=== PATIENT | male | born 1945 | race Caucasian/White ===

== ENCOUNTER 2021-05-22 12:36 | Outpatient (CLI) | payer OTHER ==
[2021-05-22 13:20] LABS: #Eosinphils 0.1 10x3/uL (0.0-0.5); #Monocytes 0.6 10x3/uL (0.0-1.1); #Neutrophils 7.6 10x3/uL (1.5-8.4); %Basophils 0.4 % (0.0-2.0); %Eosinophils 0.7 % (0.0-6.0); %Lymphocytes 15.7 % (18.0-47.0); %Neutrophils 76.6 % (40.0-75.0); Hemoglobin 16.3 g/dL (13.5-17.5); Mean Corpuscular HGB CONC 34.6 g/dL (32.0-36.0); Mean Corpuscular Hemoglobin 31.3 pg (27.0-33.0); Mean Corpuscular Volume 90.4 fl (81.2-95.1); Mean Platelet Volume 9.7 fl (7.4-10.4); Platelet Count 199 10x3/uL (150-450); RBC Distribution Width 13.2 % (11.5-14.5); Red Blood Cell (RBC) Count 5.21 10x6/uL (4.32-5.72); White Blood Cell (WBC) Count 9.9 10x3/uL (3.5-10.5)
[2021-05-22 13:31] LABS: INR-International Normal Ratio 0.9; Prothrombin Time 10.3 sec (9.5-12.1)
[2021-05-22 13:40] LABS: Anion Gap 16 mmol/L (10-20); BUN (Urea Nitrogen) 7 mg/dL (8.4-25.7); Calc. Creatinine Clearance 0 mL/min (70-130); Calcium 9.4 mg/dL (7.8-10.44); Carbon Dioxide 23 mmol/L (23-31); Chloride 102 mmol/L (98-107); Glucose 95 mg/dL (83-110); Potassium 4.2 mmol/L (3.5-5.1); Sodium 137 mmol/L (136-145)
[2021-05-23 00:11] LABS: SARS-CoV-2 PCR by NAA Not Detected (NotDetected)
== END 2021-05-22 12:37 | disposition home or self-care (01) ==
LOC: LABBT 12:36
PROVIDERS: ATTEND Orthopaedic Surgery
DX: Z01.818 Encounter for other preprocedural examination (principal); M17.32 Unilateral post-traumatic osteoarthritis, left knee; Z20.822 Contact with and (suspected) exposure to COVID-19
CPT/HCPCS: 80048; 85025; 85610; 87081; 93005; 93010; U0003; U0005

== ENCOUNTER 2021-05-22 12:45 | Inpatient (IN) | payer OTHER ==
[2021-05-20 13:33] VITALS: BMI 33.2
[2021-05-27] MEDS ORDERED: Tranexamic Acid 1,000 MG/10 ML VIAL ONE (05:54)
[2021-05-27] MEDS ORDERED: Sodium Chloride 0.9% 100 ML ONE (05:54)
[2021-05-27] MEDS ORDERED: Vancomycin 1.5 GRAM/300 ML BAG 1.5 GM in Premix Bag 1 BAG IVPB SCH (06:00)
[2021-05-27] MEDS ORDERED: Fentanyl 100 MCG/2 ML VIAL ONE ×2 (06:13→06:44)
[2021-05-27] MEDS ORDERED: Lidocaine 1% (PF) 30 ML VIAL ONE (06:44)
[2021-05-27] MEDS ORDERED: Midazolam HCl 2 mg/2 ml Vial ONE (06:44)
[2021-05-27] MEDS ORDERED: Ropivacaine 0.5% HCl/PF (150 MG/30 ML VIAL) ONE (06:44)
[2021-05-27] MEDS ORDERED: Bupivacaine 0.25% 10 ML VIAL ONE (06:59)
[2021-05-27] MEDS ORDERED: Clindamycin/D5W 900 mg/50 ml Premix Bag ONE (07:06)
[2021-05-27] MEDS ORDERED: Levofloxacin 500 mg/D5W 100 ml Premix Bag ONE (07:06)
[2021-05-27] MEDS ORDERED: Dexamethasone 20 MG/5 ML VIAL ONE (07:13)
[2021-05-27] MEDS ORDERED: Ondansetron PF 4 MG/2 ML Vial ONE (07:13)
[2021-05-27] MEDS ORDERED: PROPOFOL 200 MG/20 ML VIAL ONE (07:13)
[2021-05-27] MEDS ORDERED: Lidocaine 1% PF 5 ML VIAL ONE (07:13)
[2021-05-27] MEDS ORDERED: EPINEPHrine 1 MG/ML AMP ONE (08:15)
[2021-05-27] MEDS ORDERED: Fentanyl 250 MCG/5 ML VIAL ONE ×2 (08:43→09:37)
[2021-05-27] MEDS ORDERED: Fentanyl 100 MCG/2 ML VIAL SLOW IVP PRN (08:47)
[2021-05-27] MEDS ORDERED: Promethazine HCl 25 MG/ML VIAL IM PRN ×3 (09:00→09:34)
[2021-05-27] MEDS ORDERED: Ropivacaine 0.2% 550 ML 550 ML NERVE BLCK SCH (09:00)
[2021-05-27] MEDS ORDERED: Ondansetron PF 4 MG/2 ML Vial IVP PRN ×2 (09:00→09:34)
[2021-05-27] MEDS ORDERED: Zolpidem Tartrate 5 MG TAB PO PRN ×2 (09:00→09:34)
[2021-05-27] MEDS ORDERED: traMADol HCl 50 MG TAB PO PRN ×2 (09:00)
[2021-05-27] MEDS ORDERED: Ketorolac Tromethamine 30 MG/ML VIAL IVP PRN (09:28)
[2021-05-27] MEDS ORDERED: Ondansetron HCl/PF 4 MG/2 ML Vial IVP PRN (09:28)
[2021-05-27] MEDS ORDERED: Promethazine HCl 25 MG/ML VIAL IVPB PRN (09:28)
[2021-05-27] MEDS ORDERED: diphenhydrAMINE 25 MG CAP PO PRN (09:34)
[2021-05-27] MEDS ORDERED: Ketorolac Tromethamine 30 MG/ML VIAL ONE (09:37)
[2021-05-27] MEDS: Ketorolac Tromethamine 30 MG/ML VIAL IVP SCH ×2 (12:03→18:11)
[2021-05-27] MEDS: HYDROcodone/Acetaminophen 10/325 mg Tablet PO PRN ×2 (12:05→18:13)
[2021-05-27] MEDS: Clindamycin/D5W 900 MG in Premix Bag 1 BAG IVPB SCH ×2 (14:14→18:48)
[2021-05-27] MEDS ORDERED: Vancomycin HCl 1.5 GM in Sodium Chloride 0.9% 250 ML 300 ML IVPB SCH (19:00)
[2021-05-27] MEDS: Aspirin 81 mg Enteric Coated Tablet PO SCH (21:25)
[2021-05-27] MEDS: Ferrous Gluconate 324 MG TAB PO SCH (21:25)
[2021-05-27] MEDS: Senokot S 8.6-50 MG TAB PO SCH (21:25)
[2021-05-28] MEDS: Ketorolac Tromethamine 30 MG/ML VIAL IVP SCH ×4 (00:45→17:27)
[2021-05-28 05:18] LABS: Hemoglobin 11.9 g/dL (14.0-18.0); Mean Corpuscular HGB CONC 33.6 g/dL (32.0-36.0); Mean Corpuscular Hemoglobin 32.7 pg (27.0-31.0); Mean Corpuscular Volume 97.4 fL (78.0-98.0); Mean Platelet Volume 7.5 fL (7.4-10.4); Platelet Count 153 thou/uL (130-400); RBC Distribution Width 11.8 % (11.5-14.5); Red Blood Cell (RBC) Count 3.63 mill/uL (4.70-6.10); White Blood Cell (WBC) Count 11.4 thou/uL (4.8-10.8)
[2021-05-28] MEDS: Aspirin 81 mg Enteric Coated Tablet PO SCH ×2 (08:39→19:58)
[2021-05-28] MEDS: Ferrous Gluconate 324 MG TAB PO SCH ×2 (08:39→19:59)
[2021-05-28] MEDS: Multivitamin W/ Minerals 1 TAB PO SCH (08:39)
[2021-05-28] MEDS: Senokot S 8.6-50 MG TAB PO SCH ×2 (08:39→19:58)
[2021-05-28] MEDS: HYDROcodone/Acetaminophen 10/325 mg Tablet PO PRN ×2 (08:40→13:54)
[2021-05-28] MEDS ORDERED: Polyethylene Glycol 3350 17 GM Packet PO PRN (08:53)
[2021-05-28] MEDS: Tamsulosin HCl 0.4 MG CAP PO SCH (19:58)
[2021-05-28] MEDS: Melatonin 3 MG TAB PO PRN (19:59)
[2021-05-28] MEDS: Mirtazapine 30 MG TAB PO SCH (20:02)
[2021-05-29] MEDS: Ketorolac Tromethamine 30 MG/ML VIAL IVP SCH ×2 (00:10→05:20)
[2021-05-29 05:35] LABS: Hemoglobin 10.9 g/dL (14.0-18.0); Mean Corpuscular HGB CONC 34.2 g/dL (32.0-36.0); Mean Corpuscular Hemoglobin 33.1 pg (27.0-31.0); Mean Corpuscular Volume 96.8 fL (78.0-98.0); Mean Platelet Volume 7.7 fL (7.4-10.4); Platelet Count 157 thou/uL (130-400); White Blood Cell (WBC) Count 9.4 thou/uL (4.8-10.8)
[2021-05-29 06:01] LABS: ALT (SGPT) 13 U/L (8-55); AST (SGOT) 15 U/L (5-34); Albumin 3.3 g/dL (3.4-4.8); Alkaline Phosphatase 66 U/L (40-110); Bilirubin, Direct 0.4 mg/dL (0.1-0.3); Bilirubin, Total 0.6 mg/dL (0.2-1.2); Protein, Total 5.6 g/dL (5.8-8.1)
[2021-05-29 06:02] LABS: Anion Gap 12 mmol/L (10-20); BUN (Urea Nitrogen) 10 mg/dL (8.4-25.7); Calc. Creatinine Clearance 134 mL/min (70-130); Calcium 8.1 mg/dL (7.8-10.44); Carbon Dioxide 22 mmol/L (23-31); Chloride 104 mmol/L (98-107); Glucose 139 mg/dL (83-110); Magnesium 1.9 mg/dL (1.6-2.6); Potassium 3.6 mmol/L (3.5-5.1); Sodium 134 mmol/L (136-145)
[2021-05-29 06:24] LABS: Thyroid Stimulating Hormone 0.9928 uIU/mL (0.35-4.94)
[2021-05-29] MEDS ORDERED: Non-Formulary Item 1 EACH (Ascorbic Acid [Vitamin C] 1,000 MG Tablet) PO SCH (09:00)
[2021-05-29] MEDS ORDERED: VITAMIN E 1000 UNIT PO SCH (09:00)
[2021-05-29] MEDS ORDERED: Non-Formulary Item 1 EACH (Cholecalciferol (Vitamin D3) [Vitamin D3] 1,000 UNIT Capsule) PO SCH (09:00)
[2021-05-29] MEDS ORDERED: Multivit, Therapeutic 1 TAB PO SCH (09:00)
[2021-05-29] MEDS: Ascorbic Acid 500 mg Chewable Tablet PO SCH (09:42)
[2021-05-29] MEDS: Multivitamin W/ Minerals 1 TAB PO SCH (09:43)
[2021-05-29] MEDS: Aspirin 81 mg Enteric Coated Tablet PO SCH ×2 (09:43→20:22)
[2021-05-29] MEDS: Cyanocobalamin (Vitamin B-12) 1,000 MCG TAB PO SCH (09:43)
[2021-05-29] MEDS: Folic Acid 1 MG TAB PO SCH (09:43)
[2021-05-29] MEDS: Ferrous Gluconate 324 MG TAB PO SCH ×2 (09:44→20:21)
[2021-05-29] MEDS: HYDROcodone/Acetaminophen 10/325 mg Tablet PO PRN ×2 (09:44→20:23)
[2021-05-29] MEDS: Cholecalciferol 1,000 UNITS (25 MCG) TAB PO SCH (09:47)
[2021-05-29] MEDS: Senokot S 8.6-50 MG TAB PO SCH ×2 (09:47→20:22)
[2021-05-29] MEDS: Melatonin 3 MG TAB PO PRN (20:22)
[2021-05-29] MEDS: Mirtazapine 30 MG TAB PO SCH (20:22)
[2021-05-29] MEDS: Tamsulosin HCl 0.4 MG CAP PO SCH (20:24)
[2021-05-30 05:17] LABS: Hemoglobin 10.5 g/dL (14.0-18.0); Mean Corpuscular HGB CONC 32.3 g/dL (32.0-36.0); Mean Corpuscular Hemoglobin 31.6 pg (27.0-31.0); Mean Platelet Volume 7.8 fL (7.4-10.4); Platelet Count 150 thou/uL (130-400); RBC Distribution Width 11.9 % (11.5-14.5); White Blood Cell (WBC) Count 8.6 thou/uL (4.8-10.8)
[2021-05-30 05:36] LABS: Anion Gap 10 mmol/L (10-20); BUN (Urea Nitrogen) 8 mg/dL (8.4-25.7); Calc. Creatinine Clearance 156 mL/min (70-130); Calcium 8.3 mg/dL (7.8-10.44); Carbon Dioxide 23 mmol/L (23-31); Chloride 108 mmol/L (98-107); Glucose 108 mg/dL (83-110); Magnesium 2.2 mg/dL (1.6-2.6); Potassium 3.5 mmol/L (3.5-5.1); Sodium 137 mmol/L (136-145)
[2021-05-30] MEDS: HYDROcodone/Acetaminophen 10/325 mg Tablet PO PRN ×3 (08:25→20:13)
[2021-05-30] MEDS: Senokot S 8.6-50 MG TAB PO SCH ×2 (08:26→20:10)
[2021-05-30] MEDS: Cyanocobalamin (Vitamin B-12) 1,000 MCG TAB PO SCH (08:26)
[2021-05-30] MEDS: Ascorbic Acid 500 mg Chewable Tablet PO SCH (08:26)
[2021-05-30] MEDS: Cholecalciferol 1,000 UNITS (25 MCG) TAB PO SCH (08:26)
[2021-05-30] MEDS: Folic Acid 1 MG TAB PO SCH (08:26)
[2021-05-30] MEDS: Multivitamin W/ Minerals 1 TAB PO SCH (08:26)
[2021-05-30] MEDS: Ferrous Gluconate 324 MG TAB PO SCH ×2 (08:27→20:11)
[2021-05-30] MEDS: Aspirin 81 mg Enteric Coated Tablet PO SCH ×2 (08:27→20:10)
[2021-05-30] MEDS: Tamsulosin HCl 0.4 MG CAP PO SCH (20:10)
[2021-05-30] MEDS: Mirtazapine 30 MG TAB PO SCH (20:10)
[2021-05-30] MEDS: Melatonin 3 MG TAB PO PRN (20:13)
[2021-05-31 05:59] LABS: Hemoglobin 10.4 g/dL (14.0-18.0); Mean Corpuscular HGB CONC 33.9 g/dL (32.0-36.0); Mean Corpuscular Volume 97.3 fL (78.0-98.0); Mean Platelet Volume 7.8 fL (7.4-10.4); Platelet Count 171 thou/uL (130-400); RBC Distribution Width 11.7 % (11.5-14.5); Red Blood Cell (RBC) Count 3.15 mill/uL (4.70-6.10); White Blood Cell (WBC) Count 8.8 thou/uL (4.8-10.8)
[2021-05-31 06:29] LABS: Anion Gap 10 mmol/L (10-20); BUN (Urea Nitrogen) 8 mg/dL (8.4-25.7); Calc. Creatinine Clearance 164 mL/min (70-130); Calcium 8.6 mg/dL (7.8-10.44); Carbon Dioxide 25 mmol/L (23-31); Chloride 105 mmol/L (98-107); Glucose 104 mg/dL (83-110); Magnesium 2.1 mg/dL (1.6-2.6); Potassium 3.8 mmol/L (3.5-5.1); Sodium 136 mmol/L (136-145)
[2021-05-31] MEDS: HYDROcodone/Acetaminophen 10/325 mg Tablet PO PRN ×3 (07:56→20:10)
[2021-05-31] MEDS: Ferrous Gluconate 324 MG TAB PO SCH ×2 (08:00→20:10)
[2021-05-31] MEDS: Folic Acid 1 MG TAB PO SCH (08:00)
[2021-05-31] MEDS: Aspirin 81 mg Enteric Coated Tablet PO SCH ×2 (08:00→20:09)
[2021-05-31] MEDS: Cholecalciferol 1,000 UNITS (25 MCG) TAB PO SCH (08:01)
[2021-05-31] MEDS: Ascorbic Acid 500 mg Chewable Tablet PO SCH (08:01)
[2021-05-31] MEDS: Senokot S 8.6-50 MG TAB PO SCH ×2 (08:02→20:09)
[2021-05-31] MEDS: Cyanocobalamin (Vitamin B-12) 1,000 MCG TAB PO SCH (08:02)
[2021-05-31] MEDS: Multivitamin W/ Minerals 1 TAB PO SCH (08:03)
[2021-05-31] MEDS: Thiamine 100 MG TAB PO SCH (10:54)
[2021-05-31] MEDS: Melatonin 3 MG TAB PO PRN (20:09)
[2021-05-31] MEDS: Tamsulosin HCl 0.4 MG CAP PO SCH (20:10)
[2021-05-31] MEDS: Mirtazapine 30 MG TAB PO SCH (20:10)
[2021-06-01 06:17] LABS: Hemoglobin 10.9 g/dL (14.0-18.0); Mean Corpuscular HGB CONC 34.5 g/dL (32.0-36.0); Mean Corpuscular Hemoglobin 33.7 pg (27.0-31.0); Mean Corpuscular Volume 97.7 fL (78.0-98.0); Mean Platelet Volume 7.7 fL (7.4-10.4); Platelet Count 182 thou/uL (130-400); RBC Distribution Width 11.7 % (11.5-14.5); Red Blood Cell (RBC) Count 3.24 mill/uL (4.70-6.10); White Blood Cell (WBC) Count 8.2 thou/uL (4.8-10.8)
[2021-06-01 06:44] LABS: Anion Gap 11 mmol/L (10-20); BUN (Urea Nitrogen) 8 mg/dL (8.4-25.7); Calc. Creatinine Clearance 158 mL/min (70-130); Calcium 8.6 mg/dL (7.8-10.44); Carbon Dioxide 24 mmol/L (23-31); Chloride 105 mmol/L (98-107); Glucose 116 mg/dL (83-110); Magnesium 2.1 mg/dL (1.6-2.6); Potassium 3.8 mmol/L (3.5-5.1); Sodium 136 mmol/L (136-145)
[2021-06-01] MEDS: HYDROcodone/Acetaminophen 10/325 mg Tablet PO PRN ×3 (07:11→20:11)
[2021-06-01] MEDS: Cyanocobalamin (Vitamin B-12) 1,000 MCG TAB PO SCH (09:53)
[2021-06-01] MEDS: Folic Acid 1 MG TAB PO SCH (09:53)
[2021-06-01] MEDS: Aspirin 81 mg Enteric Coated Tablet PO SCH ×2 (09:53→20:08)
[2021-06-01] MEDS: Multivitamin W/ Minerals 1 TAB PO SCH (09:53)
[2021-06-01] MEDS: Ascorbic Acid 500 mg Chewable Tablet PO SCH (09:53)
[2021-06-01] MEDS: Cholecalciferol 1,000 UNITS (25 MCG) TAB PO SCH (09:53)
[2021-06-01] MEDS: Ferrous Gluconate 324 MG TAB PO SCH ×2 (09:53→20:09)
[2021-06-01] MEDS: Senokot S 8.6-50 MG TAB PO SCH ×2 (10:00→20:10)
[2021-06-01] MEDS: Thiamine 100 MG TAB PO SCH (10:01)
[2021-06-01] MEDS: Mirtazapine 30 MG TAB PO SCH (20:09)
[2021-06-01] MEDS: Melatonin 3 MG TAB PO PRN (20:10)
[2021-06-01] MEDS: Tamsulosin HCl 0.4 MG CAP PO SCH (20:10)
[2021-06-02] MEDS: HYDROcodone/Acetaminophen 10/325 mg Tablet PO PRN ×3 (05:09→21:19)
[2021-06-02 05:42] LABS: Hemoglobin 10.6 g/dL (14.0-18.0); Mean Corpuscular HGB CONC 33.9 g/dL (32.0-36.0); Mean Corpuscular Hemoglobin 32.8 pg (27.0-31.0); Mean Corpuscular Volume 96.9 fL (78.0-98.0); Mean Platelet Volume 7.4 fL (7.4-10.4); Platelet Count 217 thou/uL (130-400); RBC Distribution Width 11.8 % (11.5-14.5); Red Blood Cell (RBC) Count 3.24 mill/uL (4.70-6.10); White Blood Cell (WBC) Count 8.1 thou/uL (4.8-10.8)
[2021-06-02 06:04] LABS: Anion Gap 13 mmol/L (10-20); BUN (Urea Nitrogen) 10 mg/dL (8.4-25.7); Calc. Creatinine Clearance 144 mL/min (70-130); Calcium 8.7 mg/dL (7.8-10.44); Carbon Dioxide 24 mmol/L (23-31); Chloride 103 mmol/L (98-107); Glucose 120 mg/dL (83-110); Magnesium 2.2 mg/dL (1.6-2.6); Potassium 3.9 mmol/L (3.5-5.1); Sodium 136 mmol/L (136-145)
[2021-06-02] MEDS: Aspirin 81 mg Enteric Coated Tablet PO SCH ×2 (07:59→21:19)
[2021-06-02] MEDS: Senokot S 8.6-50 MG TAB PO SCH ×2 (07:59→22:37)
[2021-06-02] MEDS: Thiamine 100 MG TAB PO SCH (07:59)
[2021-06-02] MEDS: Folic Acid 1 MG TAB PO SCH (07:59)
[2021-06-02] MEDS: Cyanocobalamin (Vitamin B-12) 1,000 MCG TAB PO SCH (07:59)
[2021-06-02] MEDS: Ascorbic Acid 500 mg Chewable Tablet PO SCH (07:59)
[2021-06-02] MEDS: Cholecalciferol 1,000 UNITS (25 MCG) TAB PO SCH (07:59)
[2021-06-02] MEDS: Multivitamin W/ Minerals 1 TAB PO SCH (08:00)
[2021-06-02] MEDS: Ferrous Gluconate 324 MG TAB PO SCH ×2 (08:00→21:19)
[2021-06-02] MEDS ORDERED: Acetaminophen 325 MG TAB PO PRN (14:28)
[2021-06-02] MEDS ORDERED: Milk Of Magnesia 30 ML UDCUP PO PRN (15:09)
[2021-06-02] MEDS ORDERED: Polyethylene Glycol 3350 17 GM Packet PO SCH (15:15)
[2021-06-02] MEDS: Mirtazapine 30 MG TAB PO SCH (21:19)
[2021-06-02] MEDS: Melatonin 3 MG TAB PO PRN (21:19)
[2021-06-02] MEDS: Tamsulosin HCl 0.4 MG CAP PO SCH (21:19)
[2021-06-03 06:25] LABS: Hemoglobin 9.8 g/dL (14.0-18.0); Mean Corpuscular HGB CONC 33.2 g/dL (32.0-36.0); Mean Corpuscular Hemoglobin 32.1 pg (27.0-31.0); Mean Corpuscular Volume 96.5 fL (78.0-98.0); Platelet Count 207 thou/uL (130-400); RBC Distribution Width 11.7 % (11.5-14.5); Red Blood Cell (RBC) Count 3.07 mill/uL (4.70-6.10); White Blood Cell (WBC) Count 8.9 thou/uL (4.8-10.8)
[2021-06-03] MEDS: HYDROcodone/Acetaminophen 10/325 mg Tablet PO PRN ×3 (06:46→21:11)
[2021-06-03 06:50] LABS: Anion Gap 13 mmol/L (10-20); BUN (Urea Nitrogen) 10 mg/dL (8.4-25.7); Calc. Creatinine Clearance 153 mL/min (70-130); Calcium 8.6 mg/dL (7.8-10.44); Carbon Dioxide 24 mmol/L (23-31); Chloride 102 mmol/L (98-107); Glucose 136 mg/dL (83-110); Magnesium 2.2 mg/dL (1.6-2.6); Potassium 3.8 mmol/L (3.5-5.1); Sodium 135 mmol/L (136-145)
[2021-06-03] MEDS: Polyethylene Glycol 3350 17 GM Packet PO SCH (09:41)
[2021-06-03] MEDS: Aspirin 81 mg Enteric Coated Tablet PO SCH ×2 (09:41→21:11)
[2021-06-03] MEDS: Ascorbic Acid 500 mg Chewable Tablet PO SCH (09:41)
[2021-06-03] MEDS: Ferrous Gluconate 324 MG TAB PO SCH ×2 (09:42→21:12)
[2021-06-03] MEDS: Multivitamin W/ Minerals 1 TAB PO SCH (09:42)
[2021-06-03] MEDS: Folic Acid 1 MG TAB PO SCH (09:42)
[2021-06-03] MEDS: Cyanocobalamin (Vitamin B-12) 1,000 MCG TAB PO SCH (09:42)
[2021-06-03] MEDS: Cholecalciferol 1,000 UNITS (25 MCG) TAB PO SCH (09:42)
[2021-06-03] MEDS: Thiamine 100 MG TAB PO SCH (09:47)
[2021-06-03] MEDS: Senokot S 8.6-50 MG TAB PO SCH ×2 (10:16→21:14)
[2021-06-03] MEDS ORDERED: Nicotine 21 MG PATCH TD SCH (18:15)
[2021-06-03] MEDS: Melatonin 3 MG TAB PO PRN (21:11)
[2021-06-03] MEDS: Tamsulosin HCl 0.4 MG CAP PO SCH (21:12)
[2021-06-03] MEDS: Mirtazapine 30 MG TAB PO SCH (21:12)
[2021-06-04 07:28] LABS: Anion Gap 14 mmol/L (10-20); BUN (Urea Nitrogen) 11 mg/dL (8.4-25.7); Calc. Creatinine Clearance 138 mL/min (70-130); Carbon Dioxide 25 mmol/L (23-31); Chloride 102 mmol/L (98-107); Glucose 111 mg/dL (83-110); Magnesium 2.3 mg/dL (1.6-2.6); Potassium 3.9 mmol/L (3.5-5.1); Sodium 137 mmol/L (136-145)
[2021-06-04 08:41] VITALS: BP 136/84; TEMP 98.9
[2021-06-04] MEDS: Multivitamin W/ Minerals 1 TAB PO SCH (09:23)
[2021-06-04] MEDS: Aspirin 81 mg Enteric Coated Tablet PO SCH (09:23)
[2021-06-04] MEDS: Ferrous Gluconate 324 MG TAB PO SCH (09:23)
[2021-06-04] MEDS: Cyanocobalamin (Vitamin B-12) 1,000 MCG TAB PO SCH (09:23)
[2021-06-04] MEDS: Thiamine 100 MG TAB PO SCH (09:23)
[2021-06-04] MEDS: Ascorbic Acid 500 mg Chewable Tablet PO SCH (09:23)
[2021-06-04] MEDS: Polyethylene Glycol 3350 17 GM Packet PO SCH (09:24)
[2021-06-04] MEDS: Folic Acid 1 MG TAB PO SCH (09:24)
[2021-06-04] MEDS: Cholecalciferol 1,000 UNITS (25 MCG) TAB PO SCH (09:24)
[2021-06-04] MEDS: Senokot S 8.6-50 MG TAB PO SCH (09:24)
[2021-06-04] MEDS: HYDROcodone/Acetaminophen 10/325 mg Tablet PO PRN (09:34)
[2021-06-04] MEDS ORDERED: Nicotine 21 MG PATCH TD SCH (18:00)
== END 2021-06-04 11:10 | disposition home health service (06) | DRG 470 ==
LOC: SURG A 05-27 05:21 → INTOOBSV 05-27 05:21 → SJJU 05-27 11:06 → OBSVTOIN 05-28 07:08
PROVIDERS: ADMIT Orthopaedic Surgery; ATTEND Hospitalist
PROC: 0SRD0J9 Replacement of Left Knee Joint with Synthetic Substitute, Cemented, Open Approach (ICD-10-PCS; principal; 2021-05-27)
DX: M17.32 Unilateral post-traumatic osteoarthritis, left knee (principal); N40.0 Benign prostatic hyperplasia without lower urinary tract symptoms; F41.9 Anxiety disorder, unspecified; F17.200 Nicotine dependence, unspecified, uncomplicated; G47.00 Insomnia, unspecified; F10.11 Alcohol abuse, in remission; H40.9 Unspecified glaucoma; K59.00 Constipation, unspecified; D50.9 Iron deficiency anemia, unspecified; Z60.2 Problems related to living alone; Z88.0 Allergy status to penicillin; Z83.3 Family history of diabetes mellitus; Z82.49 Family history of ischemic heart disease and other diseases of the circulatory system; Z79.82 Long term (current) use of aspirin; Z79.899 Other long term (current) drug therapy; Z98.84 Bariatric surgery status
CPT/HCPCS: 36415; 80048; 80076; 82607; 82746; 83735; 84443; 85027; 96365; 96366; 96375; 96376; A4306; C1713; C1776; G0378; J0171; J1100; J1885; J1956; J2001; J2250; J2405; J2704; J2795; J3010; J3370; J3490; J7050; S0020

== ENCOUNTER 2021-06-08 17:27 | Emergency (ER) | payer OTHER | END 2021-06-08 18:52 | disposition home or self-care (01) | LOC: ERS 17:27 | DX: M79.89 Other specified soft tissue disorders (principal); R91.1 Solitary pulmonary nodule; F17.210 Nicotine dependence, cigarettes, uncomplicated ==

== ENCOUNTER 2022-08-07 15:30 | Inpatient (IN) | payer MEDICARE, OTHER ==
[~2022-08-07 15:30] MED LIST: Iopamidol-370 76% 500 ML MDV (1 ML CHARGE) ONE
[2022-08-07 15:46] LABS: #Monocytes 1.3 thou/uL (0.11-0.59); #Neutrophils 20.2 thou/uL (1.40-6.50); %Basophils 0.2 % (0.0-1.0); %Eosinophils 0.1 % (0.0-10.0); %Monocytes 5.7 % (0.0-10.0); %Neutrophils 88.7 % (42.0-75.0); Hemoglobin 14.3 g/dL (14.0-18.0); Mean Corpuscular HGB CONC 34.7 g/dL (32.0-36.0); Mean Corpuscular Hemoglobin 31.7 pg (27.0-31.0); Mean Corpuscular Volume 91.4 fl (78.0-98.0); Mean Platelet Volume 9.4 fL (7.4-10.4); Platelet Count 150 10x3/uL (130-400); RBC Distribution Width 13.2 % (11.5-14.5); Red Blood Cell (RBC) Count 4.51 mill/uL (4.70-6.10); White Blood Cell (WBC) Count 22.7 10x3/uL (4.8-10.8)
[2022-08-07 16:07] LABS: ALT (SGPT) 18 U/L (8-55); AST (SGOT) 23 U/L (5-34); Albumin 3.6 g/dL (3.4-4.8); Alkaline Phosphatase 102 U/L (40-110); Anion Gap 15 mmol/L (10-20); BUN (Urea Nitrogen) 8 mg/dL (8.4-25.7); Bilirubin, Total 1.3 mg/dL (0.2-1.2); Calc. Creatinine Clearance 0 mL/min (70-130); Calcium 8.8 mg/dL (7.8-10.44); Carbon Dioxide 20 mmol/L (23-31); Chloride 97 mmol/L (98-107); Estimated GFR 94; Glucose 142 mg/dL (83-110); Potassium 3.9 mmol/L (3.5-5.1); Protein, Total 6.6 g/dL (5.8-8.1); Sodium 128 mmol/L (136-145)
[2022-08-07 16:17] LABS: Bacteria/HPF 1+ HPF (None Seen); Bilirubin Negative (Negative); Blood, Urine 3+ (Negative); CAUTI Indications for Culture Acute Hematuria; Clarity Turbid (Clear); Glucose, Urine (Dipstick) Normal (Negative); Ketone, Urine Negative (Negative); Leukocyte 500 Leu/uL (Negative); Nitrite Negative (Negative); Protein, Urine (Dipstick) 200 mg/dL (Neg-Trace); RBC/HPF Greater than 50 HPF (0-3); Specific Gravity, Urine 1.018 (1.002-1.036); Squamous Epithelial 0-3 HPF (0-3); Urobilinogen 3 mg/dL (Less than 2); WBC/HPF Greater than 50 HPF (0-3)
[2022-08-07 16:18] LABS: Urine Culture Reflex Yes Yes
[2022-08-07] MEDS ORDERED: cefTRIAXone (ROCEPHIN) 2 GM VIAL ONE (16:33)
[2022-08-07] MEDS ORDERED: Vancomycin 1.5 GRAM/300 ML BAG 1.5 GM in Premix Bag 1 BAG IVPB SCH (16:45)
[2022-08-07] MEDS ORDERED: Ondansetron ODT 4 MG TAB PO PRN (17:13)
[2022-08-07] MEDS ORDERED: Electrolyte Replacement Protocol FS SCH (17:15)
[2022-08-07 17:51] LABS: Magnesium 1.9 mg/dL (1.6-2.6); Phosphorus 2.7 mg/dL (2.3-4.7)
[2022-08-07 19:08] VITALS: BMI 36.6
[2022-08-07] MEDS: Lactated Ringer's 1,000 ML IV SCH (20:39)
[2022-08-07] MEDS: Lorazepam 1 MG TAB PO SCH ×2 (20:39→22:18)
[2022-08-07] MEDS: Acetaminophen 325 MG TAB PO PRN (20:40)
[2022-08-07] MEDS: Thiamine HCl 200 MG/2 ML VIAL SLOW IVP SCH (20:40)
[2022-08-07] MEDS: Mirtazapine 30 MG TAB PO SCH (20:40)
[2022-08-07] MEDS: Tamsulosin HCl 0.4 MG CAP PO SCH (20:41)
[2022-08-07] MEDS ORDERED: Magnesium 2 GM/50 ML(in water) 2 GM in Premix Bag 1 BAG IVPB SCH (22:00)
[2022-08-08] MEDS: Lorazepam 0.5 MG TAB PO SCH ×4 (06:15→23:11)
[2022-08-08] MEDS: Lactated Ringer's 1,000 ML IV SCH ×3 (06:15→23:12)
[2022-08-08] MEDS: Lorazepam 1 MG TAB PO SCH (06:18)
[2022-08-08 06:33] LABS: #Neutrophils 15.9 thou/uL (1.40-6.50); %Basophils 0.2 % (0.0-1.0); %Eosinophils 0.1 % (0.0-10.0); %Lymphocytes 3.3 % (21.0-51.0); %Monocytes 5.7 % (0.0-10.0); %Neutrophils 88.6 % (42.0-75.0); Hemoglobin 14.1 g/dL (14.0-18.0); Mean Corpuscular HGB CONC 33.9 g/dL (32.0-36.0); Mean Corpuscular Hemoglobin 31.5 pg (27.0-31.0); Mean Corpuscular Volume 92.9 fl (78.0-98.0); Mean Platelet Volume 10.2 fL (7.4-10.4); Platelet Count 150 10x3/uL (130-400); RBC Distribution Width 13.3 % (11.5-14.5); Red Blood Cell (RBC) Count 4.48 mill/uL (4.70-6.10); White Blood Cell (WBC) Count 17.9 10x3/uL (4.8-10.8)
[2022-08-08] MEDS: Folic Acid 1 MG TAB PO SCH (09:51)
[2022-08-08] MEDS: Nicotine 21 MG PATCH TD SCH (09:51)
[2022-08-08] MEDS: Multivit, Therapeutic 1 TAB PO SCH (09:51)
[2022-08-08] MEDS: Acetaminophen 325 MG TAB PO PRN ×2 (09:53→20:18)
[2022-08-08 10:30] LABS: ALT (SGPT) 17 U/L (8-55); AST (SGOT) 18 U/L (5-34); Albumin 3.4 g/dL (3.4-4.8); Alkaline Phosphatase 118 U/L (40-110); Anion Gap 18 mmol/L (10-20); BUN (Urea Nitrogen) 12 mg/dL (8.4-25.7); Bilirubin, Total 0.7 mg/dL (0.2-1.2); Calc. Creatinine Clearance 98 mL/min (70-130); Carbon Dioxide 21 mmol/L (23-31); Chloride 100 mmol/L (98-107); Estimated GFR 77; Globulin 3.2 g/dL (2.4-3.5); Glucose 109 mg/dL (83-110); Potassium 3.6 mmol/L (3.5-5.1); Protein, Total 6.6 g/dL (5.8-8.1); Sodium 135 mmol/L (136-145)
[2022-08-08] MEDS: Thiamine HCl 200 MG/2 ML VIAL SLOW IVP SCH (17:55)
[2022-08-08] MEDS: cefTRIAXone\\ROCEPHIN 2 GM in Sodium Chloride 0.9% 100 ML IVPB SCH (17:58)
[2022-08-08] MEDS ORDERED: Lorazepam 2 MG/ML VIAL IM PRN (18:03)
[2022-08-08] MEDS: Ipratropium/Albuterol 3 ML NEB NEB SCH ×2 (18:44→22:28)
[2022-08-08] MEDS: Mometasone 100 MCG/Formoterol 5 MCG 120 PUFF INHALER INH SCH (18:45)
[2022-08-08] MEDS: Mirtazapine 30 MG TAB PO SCH (20:18)
[2022-08-08] MEDS: Tamsulosin HCl 0.4 MG CAP PO SCH (20:18)
[2022-08-09] MEDS: Ipratropium/Albuterol 3 ML NEB NEB SCH ×6 (02:28→22:10)
[2022-08-09] MEDS: Lorazepam 0.5 MG TAB PO SCH ×4 (06:21→23:30)
[2022-08-09] MEDS: Mometasone 100 MCG/Formoterol 5 MCG 120 PUFF INHALER INH SCH ×2 (06:34→18:29)
[2022-08-09 07:34] LABS: #Monocytes 0.7 thou/uL (0.11-0.59); #Neutrophils 8.6 thou/uL (1.40-6.50); %Basophils 0.2 % (0.0-1.0); %Lymphocytes 4.2 % (21.0-51.0); %Monocytes 6.7 % (0.0-10.0); %Neutrophils 88.2 % (42.0-75.0); Hemoglobin 13.2 g/dL (14.0-18.0); Mean Corpuscular HGB CONC 34.2 g/dL (32.0-36.0); Mean Corpuscular Hemoglobin 31.6 pg (27.0-31.0); Mean Corpuscular Volume 92.3 fl (78.0-98.0); Mean Platelet Volume 10.1 fL (7.4-10.4); Platelet Count 141 10x3/uL (130-400); RBC Distribution Width 13.2 % (11.5-14.5); Red Blood Cell (RBC) Count 4.18 mill/uL (4.70-6.10); White Blood Cell (WBC) Count 9.7 10x3/uL (4.8-10.8)
[2022-08-09 08:09] LABS: ALT (SGPT) 21 U/L (8-55); AST (SGOT) 29 U/L (5-34); Albumin 3.1 g/dL (3.4-4.8); Alkaline Phosphatase 108 U/L (40-110); Anion Gap 13 mmol/L (10-20); BUN (Urea Nitrogen) 12 mg/dL (8.4-25.7); Bilirubin, Total 0.4 mg/dL (0.2-1.2); Calc. Creatinine Clearance 133 mL/min (70-130); Calcium 8.8 mg/dL (7.8-10.44); Carbon Dioxide 24 mmol/L (23-31); Chloride 101 mmol/L (98-107); Estimated GFR 95; Globulin 2.9 g/dL (2.4-3.5); Glucose 126 mg/dL (83-110); Potassium 3.6 mmol/L (3.5-5.1); Sodium 134 mmol/L (136-145)
[2022-08-09] MEDS: Folic Acid 1 MG TAB PO SCH (10:32)
[2022-08-09] MEDS: Multivit, Therapeutic 1 TAB PO SCH (10:32)
[2022-08-09] MEDS: Nicotine 21 MG PATCH TD SCH (10:32)
[2022-08-09] MEDS: Lactated Ringer's 1,000 ML IV SCH (10:32)
[2022-08-09] MEDS ORDERED: predniSONE 20 MG TAB PO SCH (11:00)
[2022-08-09] MEDS ORDERED: Lorazepam 1 MG TAB PO PRN (17:00)
[2022-08-09] MEDS: Thiamine HCl 200 MG/2 ML VIAL SLOW IVP SCH (17:18)
[2022-08-09] MEDS: cefTRIAXone\\ROCEPHIN 2 GM in Sodium Chloride 0.9% 100 ML IVPB SCH (17:18)
[2022-08-09] MEDS: Acetaminophen 325 MG TAB PO PRN (17:22)
[2022-08-09] MEDS: Mirtazapine 30 MG TAB PO SCH (21:48)
[2022-08-09] MEDS: Tamsulosin HCl 0.4 MG CAP PO SCH (21:48)
[2022-08-10] MEDS: Ipratropium/Albuterol 3 ML NEB NEB SCH ×6 (02:15→22:32)
[2022-08-10] MEDS: Lorazepam 0.5 MG TAB PO SCH ×2 (05:01→11:46)
[2022-08-10] MEDS: Mometasone 100 MCG/Formoterol 5 MCG 120 PUFF INHALER INH SCH ×2 (07:32→18:45)
[2022-08-10] MEDS: predniSONE 20 MG TAB PO SCH (08:44)
[2022-08-10] MEDS: Folic Acid 1 MG TAB PO SCH (08:45)
[2022-08-10] MEDS: Multivit, Therapeutic 1 TAB PO SCH (08:45)
[2022-08-10] MEDS: Nicotine 21 MG PATCH TD SCH (08:45)
[2022-08-10 09:36] LABS: #Eosinphils 0.1 thou/uL (0.0-0.7); #Monocytes 0.6 thou/uL (0.11-0.59); %Basophils 0.1 % (0.0-1.0); %Eosinophils 0.7 % (0.0-10.0); %Lymphocytes 8.7 % (21.0-51.0); %Monocytes 8.1 % (0.0-10.0); Hemoglobin 13.3 g/dL (14.0-18.0); Mean Corpuscular HGB CONC 33.7 g/dL (32.0-36.0); Mean Corpuscular Hemoglobin 31.4 pg (27.0-31.0); Mean Corpuscular Volume 93.4 fl (78.0-98.0); Platelet Count 143 10x3/uL (130-400); RBC Distribution Width 13.6 % (11.5-14.5); Red Blood Cell (RBC) Count 4.23 mill/uL (4.70-6.10); White Blood Cell (WBC) Count 7.4 10x3/uL (4.8-10.8)
[2022-08-10 10:11] LABS: ALT (SGPT) 52 U/L (8-55); AST (SGOT) 66 U/L (5-34); Alkaline Phosphatase 92 U/L (40-110); Anion Gap 13 mmol/L (10-20); BUN (Urea Nitrogen) 14 mg/dL (8.4-25.7); Bilirubin, Total 0.2 mg/dL (0.2-1.2); Calc. Creatinine Clearance 132 mL/min (70-130); Carbon Dioxide 24 mmol/L (23-31); Chloride 105 mmol/L (98-107); Estimated GFR 94; Globulin 3.6 g/dL (2.4-3.5); Glucose 136 mg/dL (83-110); Potassium 3.7 mmol/L (3.5-5.1); Protein, Total 6.6 g/dL (5.8-8.1); Sodium 138 mmol/L (136-145)
[2022-08-10] MEDS ORDERED: Lorazepam 0.5 MG TAB PO SCH (17:00)
[2022-08-10] MEDS ORDERED: Lorazepam 1 MG TAB PO PRN (17:00)
[2022-08-10] MEDS: Thiamine 100 MG TAB PO SCH (17:49)
[2022-08-10] MEDS: cefTRIAXone\\ROCEPHIN 2 GM in Sodium Chloride 0.9% 100 ML IVPB SCH (17:49)
[2022-08-10] MEDS: Benzonatate 100 MG CAP PO PRN (18:10)
[2022-08-10] MEDS: Mirtazapine 30 MG TAB PO SCH (19:46)
[2022-08-10] MEDS: Tamsulosin HCl 0.4 MG CAP PO SCH (19:46)
[2022-08-11] MEDS: Ipratropium/Albuterol 3 ML NEB NEB SCH ×6 (02:51→22:18)
[2022-08-11 06:17] LABS: #Eosinphils 0.1 thou/uL (0.0-0.7); #Monocytes 0.9 thou/uL (0.11-0.59); #Neutrophils 6.7 thou/uL (1.40-6.50); %Basophils 0.2 % (0.0-1.0); %Eosinophils 0.9 % (0.0-10.0); %Lymphocytes 11.4 % (21.0-51.0); %Monocytes 9.9 % (0.0-10.0); %Neutrophils 77.1 % (42.0-75.0); Mean Corpuscular HGB CONC 33.2 g/dL (32.0-36.0); Mean Corpuscular Hemoglobin 31.1 pg (27.0-31.0); Mean Corpuscular Volume 93.5 fl (78.0-98.0); Mean Platelet Volume 9.8 fL (7.4-10.4); Platelet Count 172 10x3/uL (130-400); RBC Distribution Width 13.8 % (11.5-14.5); Red Blood Cell (RBC) Count 4.18 mill/uL (4.70-6.10); White Blood Cell (WBC) Count 8.6 10x3/uL (4.8-10.8)
[2022-08-11] MEDS: Mometasone 100 MCG/Formoterol 5 MCG 120 PUFF INHALER INH SCH ×2 (06:30→18:30)
[2022-08-11 06:54] LABS: ALT (SGPT) 58 U/L (8-55); AST (SGOT) 46 U/L (5-34); Albumin 3.1 g/dL (3.4-4.8); Alkaline Phosphatase 92 U/L (40-110); Anion Gap 13 mmol/L (10-20); BUN (Urea Nitrogen) 18 mg/dL (8.4-25.7); Bilirubin, Total 0.2 mg/dL (0.2-1.2); Calc. Creatinine Clearance 127 mL/min (70-130); Calcium 8.8 mg/dL (7.8-10.44); Carbon Dioxide 26 mmol/L (23-31); Chloride 104 mmol/L (98-107); Estimated GFR 93; Glucose 95 mg/dL (83-110); Potassium 3.7 mmol/L (3.5-5.1); Protein, Total 6.1 g/dL (5.8-8.1); Sodium 139 mmol/L (136-145)
[2022-08-11] MEDS: predniSONE 20 MG TAB PO SCH (09:04)
[2022-08-11] MEDS: Folic Acid 1 MG TAB PO SCH (09:04)
[2022-08-11] MEDS: Polyethylene Glycol 3350 17 GM Packet PO SCH (09:05)
[2022-08-11] MEDS: Multivit, Therapeutic 1 TAB PO SCH (09:05)
[2022-08-11] MEDS: Nicotine 21 MG PATCH TD SCH (09:05)
[2022-08-11] MEDS ORDERED: Lorazepam 0.5 MG TAB PO PRN (17:00)
[2022-08-11] MEDS: Thiamine 100 MG TAB PO SCH (17:39)
[2022-08-11] MEDS: cefTRIAXone\\ROCEPHIN 2 GM in Sodium Chloride 0.9% 100 ML IVPB SCH (17:39)
[2022-08-11] MEDS ORDERED: guanFACINE HCl 1 MG TAB PO SCH (21:00)
[2022-08-11] MEDS: guaiFENesin ER 600 MG TAB PO SCH (21:24)
[2022-08-11] MEDS: Benzonatate 100 MG CAP PO PRN (21:24)
[2022-08-11] MEDS: Mirtazapine 30 MG TAB PO SCH (21:24)
[2022-08-11] MEDS: Tamsulosin HCl 0.4 MG CAP PO SCH (21:24)
[2022-08-12] MEDS: Ipratropium/Albuterol 3 ML NEB NEB SCH ×4 (01:36→14:23)
[2022-08-12] MEDS: Benzonatate 100 MG CAP PO PRN (05:32)
[2022-08-12] MEDS: Mometasone 100 MCG/Formoterol 5 MCG 120 PUFF INHALER INH SCH (06:56)
[2022-08-12 07:02] LABS: #Eosinphils 0.1 thou/uL (0.0-0.7); #Neutrophils 6.9 thou/uL (1.40-6.50); %Basophils 0.2 % (0.0-1.0); %Eosinophils 0.8 % (0.0-10.0); %Lymphocytes 11.7 % (21.0-51.0); %Monocytes 11.1 % (0.0-10.0); %Neutrophils 75.2 % (42.0-75.0); Hemoglobin 13.1 g/dL (14.0-18.0); Mean Corpuscular HGB CONC 32.8 g/dL (32.0-36.0); Mean Corpuscular Hemoglobin 30.6 pg (27.0-31.0); Mean Corpuscular Volume 93.5 fl (78.0-98.0); Mean Platelet Volume 10.1 fL (7.4-10.4); Platelet Count 174 10x3/uL (130-400); Red Blood Cell (RBC) Count 4.28 mill/uL (4.70-6.10); White Blood Cell (WBC) Count 9.2 10x3/uL (4.8-10.8)
[2022-08-12 07:35] LABS: ALT (SGPT) 48 U/L (8-55); AST (SGOT) 28 U/L (5-34); Albumin 3.2 g/dL (3.4-4.8); Alkaline Phosphatase 87 U/L (40-110); Anion Gap 13 mmol/L (10-20); BUN (Urea Nitrogen) 16 mg/dL (8.4-25.7); Bilirubin, Total 0.3 mg/dL (0.2-1.2); Calc. Creatinine Clearance 132 mL/min (70-130); Calcium 8.8 mg/dL (7.8-10.44); Carbon Dioxide 26 mmol/L (23-31); Chloride 105 mmol/L (98-107); Estimated GFR 94; Globulin 2.8 g/dL (2.4-3.5); Glucose 119 mg/dL (83-110); Potassium 3.9 mmol/L (3.5-5.1); Sodium 140 mmol/L (136-145)
[2022-08-12] MEDS: Multivit, Therapeutic 1 TAB PO SCH (08:38)
[2022-08-12] MEDS: Folic Acid 1 MG TAB PO SCH (08:38)
[2022-08-12] MEDS: guaiFENesin ER 600 MG TAB PO SCH (08:38)
[2022-08-12] MEDS: predniSONE 20 MG TAB PO SCH (08:38)
[2022-08-12] MEDS: Nicotine 21 MG PATCH TD SCH (08:39)
[2022-08-12] MEDS: Polyethylene Glycol 3350 17 GM Packet PO SCH (08:39)
[2022-08-12] MEDS ORDERED: Losartan 25 MG TAB PO SCH (09:00)
[2022-08-12 15:17] VITALS: BP 124/74; TEMP 98.2
[2022-08-12] MEDS: cefTRIAXone\\ROCEPHIN 2 GM in Sodium Chloride 0.9% 100 ML IVPB SCH (17:04)
[2022-08-12] MEDS: Thiamine 100 MG TAB PO SCH (17:04)
[2022-08-12] MEDS ORDERED: Docusate 100 MG CAP PO PRN (17:44)
[2022-08-12] MEDS ORDERED: guaiFENesin/DM ER PO SCH (21:00)
[2022-08-13] MEDS ORDERED: Aspirin 81 mg Enteric Coated Tablet PO SCH (09:00)
[2022-08-13] MEDS ORDERED: FERROUS SULFATE 27 MG PO SCH (09:00)
[2022-08-13] MEDS ORDERED: Non-Formulary Item 1 EACH (Folic Acid [Folic Acid] 0.4 MG Tablet) PO SCH (09:00)
[2022-08-13] MEDS ORDERED: VITAMIN E 1000 UNIT PO SCH (09:00)
[2022-08-13] MEDS ORDERED: [UNRECOGNIZED DRUG - OTHER] PO SCH (09:00)
[2022-08-13] MEDS ORDERED: Cyanocobalamin (Vitamin B-12) 1,000 MCG TAB PO SCH (09:00)
[2022-08-13] MEDS ORDERED: Non-Formulary Item 1 EACH (Cholecalciferol (Vitamin D3) [Vitamin D3] 1,000 UNIT Capsule) PO SCH (09:00)
[2022-08-13] MEDS ORDERED: Non-Formulary Item 1 EACH (Ascorbic Acid [Vitamin C] 1,000 MG Tablet) PO SCH (09:00)
== END 2022-08-12 19:12 | disposition swing bed (61) | DRG 872 ==
LOC: ERS 15:30 → T4-A 18:36
PROVIDERS: ADMIT Family Medicine; ATTEND Family Medicine
DX: A41.51 Sepsis due to Escherichia coli [E. coli] (principal); N39.0 Urinary tract infection, site not specified; E87.1 Hypo-osmolality and hyponatremia; J44.1 Chronic obstructive pulmonary disease with (acute) exacerbation; M54.50 Low back pain, unspecified; F32.A Depression, unspecified; F41.9 Anxiety disorder, unspecified; G47.00 Insomnia, unspecified; N40.1 Benign prostatic hyperplasia with lower urinary tract symptoms; R31.0 Gross hematuria; F10.10 Alcohol abuse, uncomplicated; F17.210 Nicotine dependence, cigarettes, uncomplicated; K59.00 Constipation, unspecified; Z88.0 Allergy status to penicillin; Z79.82 Long term (current) use of aspirin; Z79.51 Long term (current) use of inhaled steroids; Z79.899 Other long term (current) drug therapy; Z98.84 Bariatric surgery status; Z98.890 Other specified postprocedural states
CPT/HCPCS: 36415; 51701; 70450; 71045; 72125; 74177; 80053; 81001; 82248; 82550; 83605; 83735; 84100; 85025; 87040; 87077; 87086; 87149; 87186; 93005; 94150; 94640; 96365; 96367; G0390; J0696; J3370; J3411; J3475; J3490; J7120; J7512; J7620; Q9967